=== PATIENT | female | born 1950 | race Caucasian/White ===

== ENCOUNTER 2024-03-30 13:53 | Emergency (ER) | payer SELFPAY ==
[2024-03-30 14:09] VITALS: BMI 24.6
[2024-03-30 14:10] VITALS: BP 128/64
--- NOTE | 2024-03-30 15:39 | ED.MUSCINJ ---
HPI-Injury
<Yunior Cook PA-C - Last Filed: 03/30/24 17:58>
General
Chief Complaint: Fall
Time Seen by Provider: 03/30/24 15:14
History of Present Illness-Injury
Initial Injury comments:
Patient is a 73-year-old female with no reported chronic medical problems and no daily medications here today for evaluation after she sustained a mechanical fall earlier today while staying at a hotel. She reports falling down approximately 4-5
steps, falling along her left wrist and striking her head against the ground. She does believe she lost consciousness for several seconds but is not entirely sure. She is not on anticoagulation. Patient has since had a mild headache along the
left side of her head and mild pain around her left eye. She also endorses pain along her left wrist and decreased range of motion. No dizziness or blurry vision. No numbness or tingling. No focal weakness (aside from the patient's wrist). No
abdominal pain. No back pain. No hip or lower extremity pain.
Review of Systems
<Yunior Cook PA-C - Last Filed: 03/30/24 17:58>
Review of Systems
All Other Systems: ROS reviewed and negative except as documented in HPI and ROS
Phy Exam
<Yunior Cook PA-C - Last Filed: 03/30/24 17:58>
Physical Exam
Physical Exam:
GENERAL: Alert , in no apparent distress
EYE: pupils equal and reactive to light, extraocular movements intact. There is a moderate amount of left periorbital ecchymosis and swelling without tenderness. No proptosis or chemosis. No evidence of open globe injury.
NECK: Supple, no tenderness
ENT: o/p clr, mmm.
CARDIAC: Regular rate and rhythm.
LUNGS: Clear breath sounds bilaterally, no acute respiratory distress, no wheezes/rales/rhonchi
ABDOMEN: Soft, without focal tenderness, no r/g, no cvat
NEUROLOGICAL: Alert and oriented, no focal neuro deficits
MUSCULOSKELETAL: Moderate tenderness to palpation with swelling, ecchymosis, and a palpable deformity along the left wrist extending along the proximal aspect of the forearm. Compartments soft throughout. Pulses 2+ throughout. Cycle Touring Guide strength
intact. Sensation intact throughout. Decreased range of motion/motor of the left wrist.
SKIN: Warm and dry, skin intact.
MUSCULOSKELETAL: No edema, well perfused.
PSYCH: Normal and appropriate interaction.
Injury Course
<Yunior Cook PA-C - Last Filed: 03/30/24 17:58>
Orders/Labs/Results
Orders:
Orders
03/30/24 15:37
CT Cervical Spine W/o Iv Contr Urgent
Comment:
Reason For Exam: neck pain
CT Head W/o Iv Contrast Urgent
Comment:
Reason For Exam: head trauma
CT Orbits W/o Iv Contrast Urgent
Comment:
Reason For Exam: left periorbital pain
CR Forearm - Left 2 View Urgent
Comment:
Reason For Exam: fall, + deformity
CR Wrist - Left Min 3 Views Urgent
Comment:
Reason For Exam: fall, + deformity
03/30/24 18:48
CR Wrist - Left Min 2 Views Urgent
Comment:
Reason For Exam: post splinting
<Calos Bartlett PA-C - Last Filed: 03/30/24 23:23>
Orders/Labs/Results
Orders:
Orders
03/30/24 15:37
CT Cervical Spine W/o Iv Contr Urgent
Comment:
Reason For Exam: neck pain
CT Head W/o Iv Contrast Urgent
Comment:
Reason For Exam: head trauma
CT Orbits W/o Iv Contrast Urgent
Comment:
Reason For Exam: left periorbital pain
CR Forearm - Left 2 View Urgent
Comment:
Reason For Exam: fall, + deformity
CR Wrist - Left Min 3 Views Urgent
Comment:
Reason For Exam: fall, + deformity
03/30/24 18:48
CR Wrist - Left Min 2 Views Urgent
Comment:
Reason For Exam: post splinting
Procedures
<Yunior Cook PA-C - Last Filed: 03/30/24 17:58>
Splinting/Sling Placement
Left Wrist:
Pre-splint extermity exam: neurovascular intact
Type of splint: frannie wrap and volar
Splint material: fiberglass
Splint checked by provider?: Yes
Normal distal neurovascular exam?: Yes
<Calos Bartlett PA-C - Last Filed: 03/30/24 23:23>
Joint/Fracture Reduction
Left Wrist:
Indication for procedure:: Displaced distal radius fracture
Procedure completed by: Calos Bartlett PA-C
Consent form signed: No
Joint reduced: without anesthesia
Anesthesia/sedation: 1% Lidocaine and Regional block
Injury was: closed
Further treatement: needs further treatment
Post reduction exam: stable
Capillary Refill: normal
Normal distal neurovascular exam?: Yes
<Yunior Cook PA-C - Last Filed: 03/30/24 17:58>
MDM/Problems Addressed
Differential Diagnosis Includes:
Patient is a 73-year-old female with no reported chronic medical problems and no daily medications here today for evaluation after she sustained a mechanical fall earlier today while staying at a hotel. Overall, the patient appears well. On exam,
the patient has a large left-sided frontal/parietal scalp hematoma as well as periorbital ecchymosis/swelling along the left side. She also has a positive left wrist/forearm deformity with swelling and ecchymosis noted. Pulses 2+ throughout
distally. Sensation intact throughout. There was reported neck stiffness without tenderness or pain. Will begin with x-rays of the left wrist and left forearm. Will also obtain CT scans of the head, left orbit, and cervical spine.
03/30/2024 1748: X-rays reveal a comminuted displaced impacted fracture of the distal radius metaphysis and comminuted distracted ulnar styloid fracture patient splinted with a volar splint. Orthopedics contacted and pending recommendations.
Patient also pending CT imaging. Pain well-controlled.
<Yunior Cook PA-C - Last Filed: 03/30/24 17:58>
*Critical Care Note
Total Time (30-74mins, 75-104mins- exclusive of procedures): Not Applicable
<Calos Bartlett PA-C - Last Filed: 03/30/24 23:23>
Update Note
Update Note:
Assumed care of patient from Yunior Cook PA-C at shift change 1800. Hematoma block administered and distal radius fracture was reduced with linear traction, placed in sugar-tong splint with sling and will refer to orthopedics as an outpatient
ED Attending Note
<Yunior Cook PA-C - Last Filed: 03/30/24 17:58>
-
Portions of this chart may have been created with voice recognition software.� Occasional wrong word or��sound alike� substitutions may have occurred due to the inherent limitations of voice recognition software.
Discharge Plan
Departure
Patient Disposition: Home (Routine Discharge)
Date of Disposition: 03/30/24
Time of Disposition: 19:41
Patient with high blood pressure during this ER visit?: No
Condition: Good
Covid-19: Not Applicable
Discharge Problem:
Fracture of distal end of left radius, Closed fracture of styloid process of left ulna
Instructions: Wrist fracture
Prescriptions:
No Action
No Current Medications
0
Referrals:
NONE,* [Family Provider] -
Manuelito Erickson MD [Active] - Follow up in 5-7 days
Activity Restrictions/Additional Instructions:
You were seen today for evaluation after a fall.
We obtained x-rays which reveals evidence of a broken wrist along the radius and ulnar bone.
We placed you in a splint. Remain in this at all times. Rest. Ice area. Take [id number] ibuprofen and Tylenol as directed as needed for pain.
Follow-up with the orthopedic specialists as an outpatient within the next 5 to 7 days for close reevaluation.
Return for any new, worsening, or concerning symptoms.
Interventions
Interventions:
*Risk Screen - Suicide Last Done: 03/30/24 14:08
*Neglect/Abuse Screening Last Done: 03/30/24 14:07
*ED COVID-19 Vaccine History Last Done: 03/30/24 14:07
*Nursing Disposition Last Done: 03/30/24 20:29
ED-Musculoskeletal Assessment Last Done: 03/30/24 14:14
ED- Neurological Assessment Last Done: 03/30/24 14:14
ED-Skin Assessment Last Done: 03/30/24 14:14
Discharge Date and Time
Discharge Date/Time: 03/30/24 20:31
Print Language: THAI
[2024-03-30 20:19] VITALS: BP 124/70
== END 2024-03-30 20:31 | disposition home or self-care (01) ==
LOC: EMR 13:53
PROVIDERS: EMERGENCY PHYSICIAN Student in an Organized Health Care Education/Training Program
DX: S52.592A Other fractures of lower end of left radius, initial encounter for closed fracture (principal); S52.612A Displaced fracture of left ulna styloid process, initial encounter for closed fracture; W10.9XXA Fall (on) (from) unspecified stairs and steps, initial encounter
CPT/HCPCS: 99284; 25605; 70450; 70480; 72125; 73090; 73100; 73110